=== PATIENT | male | born 1985 | race African-American/Black ===

== ENCOUNTER 2019-11-24 10:16 | Emergency (ER) | payer SELFPAY ==
[~2019-11-24] VITALS: Ht 177.8 cm; Wt 97.7 kg
[2019-11-24 10:19] VITALS: Ht 177.8 cm; Wt 97.7 kg
[2019-11-24 12:50] VITALS: BP 147/88
== END 2019-11-24 12:50 | disposition home or self-care (01) ==
LOC: EDBD 10:16 → D.ER 10:16
DX: M54.5 Low back pain (principal); M25.512 Pain in left shoulder; V89.2XXA Person injured in unspecified motor-vehicle accident, traffic, initial encounter; Y93.9 Activity, unspecified; Y92.9 Unspecified place or not applicable